=== PATIENT | male | born 1990 | race Caucasian/White ===

== ENCOUNTER 2017-04-26 03:59 | Emergency (ER) | payer OTHER ==
[2017-04-26 04:30] VITALS: BMI 41.1
[2017-04-26] MEDS ORDERED: METHADONE HCL 10 MG TABLET PO ONE (04:45)
--- NOTE | 2017-04-26 05:05 | PDOC ---
History of Present Illness - General Chief Complaint: Overdose Stated Complaint: OVERDOSE OF MEDICATION Time Seen by Provider: 04/26/17 04:13 - History of Present Illness Initial Comments: 04/26/17 04:59 Patient is a 27-year-old male status post fusion surgery for T10-T12 02/25/17 who presents the emergency department today with a complaint of agitation. Mother states that he is withdrawing from pain medication. He does have pain management and he was recently prescribed 105 15 mg oxycodone pills. Mother states that he took all 105 pills over the course of the past week. His last pill was yesterday and he only took one pill yesterday. Today he is very anxious , and mother states that he is not making sense and cannot find words. Patient states that he no longer wants to take the pills and he wants to detox. He was evaluated at [facility] emergency department where they told him they do not do detox. He was referred to our department to help him set up detox care. Patient states that he has palpitations. Denies chest pain, edema, lightheadedness, recent illness, fever, chills. He denies other drug use. Denies alcohol use. Past History - Travel Traveled outside of the country in the last 30 days: No Close contact w/someone who was outside of country & ill: No - Past Medical History Allergies/Adverse Reactions: Allergies Allergy/AdvReac Type Severity Reaction Status Date / Time metoclopramide HCl Allergy Verified 04/26/17 13:30 [From Reglan] Penicillins Allergy Verified 04/26/17 13:30 vancomycin Allergy Verified 04/26/17 13:30 Home Medications: Ambulatory Orders Gabapentin 800 mg PO TID 04/26/17 Oxycodone HCl 15 mg PO QID 04/26/17 - Psycho/Social/Smoking Cessation Hx Suicidal Ideation: No Smoking History: Never smoked Have you smoked in the past 12 months: No Information on smoking cessation initiated: No Hx Alcohol Use: No Drug/Substance Use Hx: Yes Review of Systems - Review of Systems Able to Perform ROS?: Yes Is the patient limited [place] proficient: No Constitutional: No: Chills, Fever, Malaise, Weakness : No: Burning, Dysuria, Discharge, Frequency, Flank Pain Musculoskeletal: Yes: Back Pain (8/10 back pain s/p fusion surgery), Muscle Pain (back) Integumentary: No: Bruising, Erythema, Lesions, Rash *Physical Exam - Vital Signs Last Vital Signs Temp Pulse Resp BP Pulse Ox 97.9 F 123 H 14 158/89 100 04/26/17 04:28 04/26/17 04:28 04/26/17 04:28 04/26/17 04:28 04/26/17 04:28 - Physical Exam Comments: 04/26/17 05:02 GENERAL: Well developed, well nourished. AAOx2, person and place. Tearful and anxious on exam. HEENT: Normocephalic, atraumatic. PERRLA, EOMI. No conjunctival pallor. Sclera are non- icteric. Moist mucous membranes. Oropharynx is clear. NECK: Supple. Full ROM. No JVD. Carotid pulses 2+ and symmetric, without bruits. No thyromegaly. No lymphadenopathy. CARDIOVASCULAR: Regular rate and rhythm. No murmurs, rubs, or gallops. Distal pulses are 2+ and symmetric. PULMONARY: No evidence of respiratory distress. Lungs clear to auscultation bilaterally. No wheezing, rales or rhonchi. ABDOMINAL: Soft. Non-tender. Non-distended. No rebound or guarding. No organomegaly. Normoactive bowel sounds. MUSCULOSKELETAL Diffuse back tenderness. Surgical scar looks clean and well approximated with no evidence of infection. Normal range of motion at all joints. No bony deformities. No CVA tenderness. EXTREMITIES: No cyanosis. No clubbing. No edema. No calf tenderness. SKIN: Warm and dry. Normal capillary refill. No rashes. No jaundice. NEUROLOGICAL: Alert, awake, appropriate. Cranial nerves 2-12 intact. No deficits to light touch and temperature in face, upper extremities and lower extremities. No motor deficits in the in face, upper extremities and lower extremities. Normoreflexic in the upper and lower extremities. Normal speech. Toes are down- going bilaterally. Gait is normal without ataxia. PSYCHIATRIC: Cooperative. Good eye contact. Appropriate mood and affect. ED Treatment Course - LABORATORY CBC & Chemistry Diagram: 04/26/17 07:30 04/26/17 05:16 Medical Decision Making - Medical Decision Making 04/26/17 05:03 Patient is a 27-year-old male status post fusion surgery for T10-T12 02/25/17 who presents the emergency department today with a complaint of agitation. Mother states that he is withdrawing from pain medication. Patient is requesting detox at this time. He is also very agitated. We will give him medication for agitation and withdrawals. Mother states he has had bad reaction to Ativan and that it makes him more anxious. We will call [facility] in the morning to see if they have a bed for detox. 1.CBC, CMP, UA, U tox, thyroid, acetaminophen 2.methadone 10 mg 3.reevaluate 04/26/17 06:52 Pt. is still anxious. Will order 10 IV valium. [employer] was queried. Pt. had multiple prescriptions over a short amount of time with many pills dispensed. Over 1000 pills between February and March. A notice was sent to the health department for multiple prescriptions. Pt. has a WBC of 18. Will obtain urine and CXR at this time. 04/26/17 06:59 EKG: Sinus Tachycardia. Rate 121. Normal intervals normal axis. No acute ST-T wave changes. 04/26/17 07:08 Sign out given to DRAGAN Dominguez. *DC/Admit/Observation/Transfer Diagnosis at time of Disposition: Opiate withdrawal - Discharge Dispostion Disposition: HOME Condition at time of disposition: Improved - Referrals Referrals: Chao Singh [Primary Care Provider] - - Patient Instructions Printed Discharge Instructions: DI for Prescription Opioid Use Additional Instructions: Please utilizes all resources at the facility to abstain from opiate use. Please also notify the prescribing physician of your admission for detox.
--- NOTE | 2017-04-26 05:07 | PDOC ---
*Physical Exam - Vital Signs Last Vital Signs Temp Pulse Resp BP Pulse Ox 97.9 F 123 H 14 158/89 100 04/26/17 04:28 04/26/17 04:28 04/26/17 04:28 04/26/17 04:28 04/26/17 04:28 Medical Decision Making - Medical Decision Making 04/26/17 05:06 Pt seen by the Advanced Practice Provider under my direct supervision Ancillary studies reviewed I agree with plan as outlined by the Advanced Practice Provider ERASMO Aguirre
[2017-04-26] MEDS ORDERED: METHADONE HCL 10 MG TABLET ONE (05:10)
[2017-04-26 05:24] LABS: BASOPHIL 0.8 % (0-2.0); EOSINOPHIL 0.1 % (0-4.5); MCH 26.3 pg (25.7-33.7); MCHC 33.2 g/dl (32.0-35.9); MEAN CELL VOLUME 79.3 fl (80-96); MEAN PLT VOLUME 8.3 fl (7.5-11.1); NEUTROPHILS 81.8 % (42.8-82.8); PLATELET COUNT 390 K/MM3 (134-434); RDW 14.3 % (11.9-15.9); WHITE BLOOD COUNT 18.3 K/mm3 (4.0-10.0)
[2017-04-26] MEDS ORDERED: SODIUM CHLORIDE 1,000 ML IV STA (05:29)
[2017-04-26 05:53] LABS: ALK PHOS 110 U/L (45-117); ANION GAP 7 (8-16); BILIRUBIN,TOTAL 0.6 mg/dL (0.2-1.0); CALCIUM 9.4 mg/dL (8.5-10.1); CO2 25 mmol/L (21-32); CREATININE 0.8 mg/dL (0.7-1.3); GLUCOSE,RANDOM 99 mg/dL (74-106); TOT PROT 8.9 g/dl (6.4-8.2)
[2017-04-26 06:01] LABS: SGPT/ALT 20 U/L (12-78)
[2017-04-26 06:08] LABS: SGOT/AST 22 U/L (15-37)
[2017-04-26 06:09] LABS: CPK 118 IU/L (39-308); TROPONIN I < 0.02 ng/ml (0.00-0.05)
[2017-04-26] MEDS ORDERED: diazePAM CARPU-JECT 10 MG/2 ML DISP.SYRIN IVPUSH ONE (06:25)
[2017-04-26] MEDS ORDERED: diazePAM CARPU-JECT 10 MG/2 ML DISP.SYRIN ONE (06:29)
--- NOTE | 2017-04-26 07:24 | PDOC ---
*Physical Exam - Vital Signs Last Vital Signs Temp Pulse Resp BP Pulse Ox 97.9 F 123 H 14 158/89 100 04/26/17 04:28 04/26/17 04:28 04/26/17 04:28 04/26/17 04:28 04/26/17 04:28 ED Treatment Course - LABORATORY CBC & Chemistry Diagram: 04/26/17 07:30 04/26/17 05:16 - ADDITIONAL ORDERS Additional order review: Laboratory Results 04/26/17 04/26/17 04/26/17 05:22 05:22 05:16 Sodium Potassium Chloride Carbon Dioxide Anion Gap BUN Creatinine Creat Clearance w eGFR Random Glucose Calcium Total Bilirubin AST ALT Alkaline Phosphatase Creatine Kinase 118 Troponin I < 0.02 Total Protein Albumin TSH 1.20 Acetaminophen < 10 L 04/26/17 05:16 Sodium 137 Potassium 4.4 Chloride 105 Carbon Dioxide 25 Anion Gap 7 L BUN 10 Creatinine 0.8 Creat Clearance w eGFR > 60 Random Glucose 99 Calcium 9.4 Total Bilirubin 0.6 AST 22 ALT 20 Alkaline Phosphatase 110 Creatine Kinase Troponin I Total Protein 8.9 H Albumin 4.0 TSH Acetaminophen 04/26/17 05:16 RBC 4.60 MCV 79.3 L MCHC 33.2 RDW 14.3 MPV 8.3 Neutrophils % 81.8 Lymphocytes % 10.7 Monocytes % 6.6 Eosinophils % 0.1 Basophils % 0.8 - Medications Given in the ED: ED Medications Discontinued Medications Generic Name Dose Route Start Last Admin Trade Name Freq PRN Reason Stop Dose Admin Diazepam 10 mg 04/26/17 06:25 04/26/17 06:31 Valium Injection - IVPUSH 04/26/17 06:26 10 mg ONCE ONE Administration Diphenhydramine HCl 25 mg 04/26/17 05:29 04/26/17 05:54 Benadryl Injection - IVPUSH 04/26/17 05:30 25 mg ONCE ONE Administration Diphenhydramine HCl 25 mg 04/26/17 05:43 04/26/17 05:56 Benadryl Injection - IM 04/26/17 05:44 Not Given ONCE ONE Diphenhydramine HCl 25 mg 04/26/17 05:48 04/26/17 05:55 Benadryl Injection - IVPUSH 04/26/17 05:49 Not Given ONCE ONE Sodium Chloride 1,000 mls @ 1,000 mls/hr 04/26/17 05:29 04/26/17 05:53 Normal Saline - IV 04/26/17 06:28 1,000 mls/hr ASDIR STA Administration Methadone HCl 10 mg 04/26/17 04:45 04/26/17 05:11 Dolophine - PO 04/26/17 04:46 10 mg ONCE ONE Administration Medical Decision Making - Medical Decision Making 04/26/17 07:23 Patient received in sign out from ERASMO Trejo. Patient currently detoxing from opiates. Patient awaiting to go to [facility]. Patient did have an elevated white count of 18,000. Patient will receive IV fluids repeat CBC and awaiting UA with toxicology. Will revitalize. 04/26/17 08:42 Laboratory Tests 04/26/17 04/26/17 07:30 08:10 WBC 15.2 H Hgb 11.6 L Hct 35.0 L Opiates Screen Positive Methadone Screen Positive Chest x-ray negative. Urine tox showed positive for opiates and methadone. UA pending. Repeat CBC has trended down. 04/26/17 08:54 Laboratory Tests 04/26/17 08:10 Urine Color Ltyellow Urine Appearance Clear Urine pH 5.0 Urine Protein Negative Urine Glucose (UA) Negative Urine Ketones Negative Urine Nitrite Negative Ur Leukocyte Esterase Negative 04/26/17 09:01 Called over to [facility] and there is a male bed available. Awaiting repeat vitals. Transfer via security. Mother at bedside. *DC/Admit/Observation/Transfer Diagnosis at time of Disposition: Opioid withdrawal - Discharge Dispostion Disposition: HOME Condition at time of disposition: Improved - Patient Instructions Printed Discharge Instructions: DI for Prescription Opioid Use Additional Instructions: Please utilizes all resources at the facility to abstain from opiate use. Please also notify the prescribing physician of your admission for detox.
[2017-04-26 07:48] LABS: BASOPHIL 0.7 % (0-2.0); EOSINOPHIL 0.1 % (0-4.5); MCH 26.4 pg (25.7-33.7); MCHC 33.1 g/dl (32.0-35.9); MEAN CELL VOLUME 79.7 fl (80-96); NEUTROPHILS 77.9 % (42.8-82.8); PLATELET COUNT 349 K/MM3 (134-434); RDW 14.5 % (11.9-15.9); WHITE BLOOD COUNT 15.2 K/mm3 (4.0-10.0)
[2017-04-26 08:26] LABS: URINE APPEARANCE CLEAR; URINE BILIRUBIN NEGATIVE (NEGATIVE); URINE BLOOD NEGATIVE (NEGATIVE); URINE COLOR LTYELLOW; URINE GLUCOSE (UA) NEGATIVE (NEGATIVE); URINE KETONE NEGATIVE (NEGATIVE); URINE LEUK ESTERASE NEGATIVE (NEGATIVE); URINE NITRITE NEGATIVE (NEGATIVE); URINE PROTEIN NEGATIVE (NEGATIVE); URINE UROBILINOGEN NEGATIVE mg/dL (0.2-1.0)
[2017-04-26 08:37] LABS: URINE MARIJUANA THC NEGATIVE ng/ml (CUTOFF=50)
[2017-04-26 09:03] VITALS: BP 123/76; PULSE 103; TEMP 97.4
--- NOTE | 2017-04-26 20:26 | EKG ---
Test Reason : Blood Pressure : / mmHG Vent. Rate : 121 BPM Atrial Rate : 121 BPM P-R Int : 156 ms QRS Dur : 088 ms QT Int : 318 ms P-R-T Axes : 044 010 000 degrees QTc Int : 451 ms SINUS TACHYCARDIA MODERATE VOLTAGE CRITERIA FOR LVH, MAY BE NORMAL VARIANT BORDERLINE ECG NONSPECIFIC T WAVE ABNORMALITY NO PREVIOUS ECGS AVAILABLE Confirmed by ANA MCGUIRE MD ([id number]) on 04/26/2017 8:26:38 PM Referred By: Confirmed By:ANA MCGUIRE MD
== END 2017-04-26 09:16 | disposition home or self-care (01) ==
LOC: JER 03:59
PROC: 3E033NZ Introduction of Analgesics, Hypnotics, Sedatives into Peripheral Vein, Percutaneous Approach (ICD-10-PCS; principal; 2017-04-26)
PROC: 3E033GC Introduction of Other Therapeutic Substance into Peripheral Vein, Percutaneous Approach (ICD-10-PCS; 2017-04-26)
DX: F11.23 Opioid dependence with withdrawal (principal)
CPT/HCPCS: 36415; 71010-TC; 80053; 80307; 81003; 84443; 84484; 85025; 93005; 93010; 96374; 96375; 99283-25

== ENCOUNTER 2017-04-26 13:17 | Emergency (ER) | payer OTHER ==
[2017-04-26 13:30] VITALS: BP 153/84; PULSE 120; TEMP 98.6; BMI 41.1
--- NOTE | 2017-04-26 13:37 | PDOC ---
History of Present Illness - General History Source: Patient, Parent(s) Exam Limitations: No Limitations - History of Present Illness Initial Comments: 04/26/17 14:27 The patient is a 27 year old male, with a recent visit to [facility] emergency room last night Thursday, April 26, 2017 at 04:13 with a complaint of agitation secondary to pain medication withdrawal, who presents to the emergency department today complaining of opioid withdrawal. The patient reports he was recently sent from [facility] to [facility] as [facility] is unable to facilitate the patients withdrawal symptoms due to lack of ability to give IV medications/ fluids and inpatient detox capabilities. The patient reports he was prescribed twenty 15 mg Oxycodone a day for the past week by his pain management physician Dr. Sow. The patients mother is present and communicating along with the patient. He denies any recent chest pain or shortness of breath. He denies any recent fevers, chills or dizziness. He denies any recent nausea, vomit, diarrhea or constipation. Allergies: Metoclopramide HCL, Penicillins, Vancomycin PCP: Dr. Chao Singh <Darion Mahoney - Last Filed: 04/26/17 15:09> <Vipin Mohamud - Last Filed: 04/26/17 15:20> - General Chief Complaint: Substance Abuse Stated Complaint: REVISIT Time Seen by Provider: 04/26/17 13:36 Past History <Darion Mahoney - Last Filed: 04/26/17 15:09> - Psycho/Social/Smoking Cessation Hx Suicidal Ideation: No Smoking History: Never smoked Have you smoked in the past 12 months: No Hx Alcohol Use: No Drug/Substance Use Hx: (OXYCODONE) <Vipin Mohamud - Last Filed: 04/26/17 15:20> - Past Medical History Allergies/Adverse Reactions: Allergies Allergy/AdvReac Type Severity Reaction Status Date / Time metoclopramide HCl Allergy Verified 04/26/17 13:30 [From Reglan] Penicillins Allergy Verified 04/26/17 13:30 vancomycin Allergy Verified 04/26/17 13:30 Home Medications: Ambulatory Orders Gabapentin 800 mg PO TID 04/26/17 Oxycodone HCl 15 mg PO QID 04/26/17 Review of Systems - Review of Systems Comments:: 04/26/17 14:34 GENERAL/CONSTITUTIONAL: No fever or chills. No weakness. HEAD, EYES, EARS, NOSE AND THROAT: No change in vision. No ear pain or discharge. No sore throat. CARDIOVASCULAR: No chest pain or shortness of breath. RESPIRATORY: No cough, wheezing, or hemoptysis. GASTROINTESTINAL: No nausea, vomiting, diarrhea or constipation. GENITOURINARY: No dysuria, frequency, or change in urination. MUSCULOSKELETAL: No joint or muscle swelling or pain. No neck or back pain. SKIN: No rash NEUROLOGIC: No headache, vertigo, loss of consciousness, or change in strength/ sensation. ENDOCRINE: No increased thirst. No abnormal weight change. HEMATOLOGIC/LYMPHATIC: No anemia, easy bleeding, or history of blood clots. ALLERGIC/IMMUNOLOGIC: No hives or skin allergy. <Darion Mahoney - Last Filed: 04/26/17 15:09> *Physical Exam - Vital Signs Last Vital Signs Temp Pulse Resp BP Pulse Ox 98.6 F 120 H 20 153/84 98 04/26/17 13:26 04/26/17 13:26 04/26/17 13:26 04/26/17 13:26 04/26/17 13:26 - Physical Exam Comments: 04/26/17 14:36 GENERAL: +Restless. Awake, alert, and fully oriented. HEAD: No signs of trauma EYES: PERRLA, EOMI, sclera anicteric, conjunctiva clear ENT: Auricles normal inspection, hearing grossly normal, nares patent, oropharynx clear without exudates. Moist mucosa NECK: Normal ROM, supple, no lymphadenopathy, JVD, or masses LUNGS: Breath sounds equal, clear to auscultation bilaterally. No wheezes, and no crackles HEART: Regular rate and rhythm, normal S1 and S2, no murmurs, rubs or gallops ABDOMEN: Soft, nontender, normoactive bowel sounds. No guarding, no rebound. No masses EXTREMITIES: Normal range of motion, no edema. No clubbing or cyanosis. No cords, erythema, or tenderness NEUROLOGICAL: Cranial nerves II through XII grossly intact. Normal speech, normal gait SKIN: Warm, Dry, normal turgor, no rashes or lesions noted. <Darion Mahoney - Last Filed: 04/26/17 15:09> - Vital Signs Last Vital Signs Temp Pulse Resp BP Pulse Ox 98.6 F 120 H 20 153/84 98 04/26/17 13:26 04/26/17 13:26 04/26/17 13:26 04/26/17 13:26 04/26/17 13:26 <Vipin Mohamud - Last Filed: 04/26/17 15:20> Medical Decision Making - Medical Decision Making 04/26/17 14:36 Went to further discuss case with patient and both the patient and his mother are gone. <Darion Mahoney - Last Filed: 04/26/17 15:09> - Medical Decision Making 04/26/17 15:19 Patient left when he realized that I would not proceed without being able to talk directly with his pain managment physician and the both he and his mom were caught not being truthful about what they were told at [facility]. We did wait long enough to see if the patient just went to eat or would return. <Vipin Mohamud - Last Filed: 04/26/17 15:20> *DC/Admit/Observation/Transfer - Attestations Scribe Attestion: 04/26/17 14:42 Documentation prepared by Darion Mahoney, acting as medical transcription supervisor for Vipin Mohamud DO. <Darion Mahoney - Last Filed: 04/26/17 15:09> - Attestations Physician Attestion: 04/26/17 13:37 I, Dr. Vipin Mohamud, attest that this document has been prepared under my direction and personally reviewed by me in its entirety. I further attest, that it accurately reflects all work, treatment, procedures and medical decision -making performed by me. <Vipin Mohamud - Last Filed: 04/26/17 15:20> Diagnosis at time of Disposition: Narcotic addiction, Narcotic abuse - Discharge Dispostion Disposition: ELOPED Condition at time of disposition: Unchanged/Unknown - Referrals Referrals: Chao Singh [Primary Care Provider] -
== END 2017-04-26 15:23 | disposition left against medical advice (07) ==
LOC: JER 13:17
DX: F11.10 Opioid abuse, uncomplicated (principal)
CPT/HCPCS: 99282-25